=== PATIENT | female | born 1990 | race American Indian/Alaskan Native ===

== ENCOUNTER 2016-05-31 02:07 | Emergency (ER) | payer SELFPAY ==
[2016-05-31 02:11] VITALS: BMI 26.2
[2016-05-31 02:16] VITALS: BP 109/56; PULSE 81; RESP 18; O2SAT 100
[2016-05-31 02:19] VITALS: TEMP 98.2
--- NOTE | 2016-05-31 02:41 | ED PDOC ---
Arrival/HPI - General Chief Complaint: Headache Time Seen by Provider: 05/31/16 02:09 Historian: Patient - History of Present Illness Narrative History of Present Illness (Text): 05/31/16 02:37 Ariane New is a 25 year old female who presents to the ED complaining of a frontal headache for the past 2 days. Patient also complaining of some decreased appetite secondary to headache. Patient denies any vision changes, focal neurological deficits, fever, chills, chest pain, shortness of breath, nausea, vomiting, diarrhea, urinary symptoms, back pain, neck pain, dizziness, or any other complaints. Time/Duration: < week (2 days) Symptom Onset: Gradual Symptom Course: Unchanged Activities at Onset: Rest, Light Context: Home Past Medical History - Provider Review Nursing Documentation Reviewed: Yes - Infectious Disease Hx of Infectious Diseases: None - Pulmonary Hx Asthma: Yes - Psychiatric Hx Substance Use: No - Surgical History Hx Section: Yes (x3) Other/Comment: Ovarian cyst - Anesthesia Hx Anesthesia: Yes Hx Anesthesia Reactions: No Hx Malignant Hyperthermia: No Family/Social History - Physician Review Nursing Documentation Reviewed: Yes Family/Social History: No Known Family HX Smoking Status: Heavy Smoker > 10 Cigarettes Daily Hx Alcohol Use: No Hx Substance Use: No Allergies/Home Meds Allergies/Adverse Reactions: Allergies black pepper Allergy (Verified 05/31/16 02:11) ANAPHYLAXIS Review of Systems - Physician Review All systems were reviewed & negative as marked: Yes - Review of Systems Constitutional: Normal. absent: Fevers Eyes: Normal ENT: Normal Respiratory: Normal. absent: SOB, Cough Cardiovascular: Normal. absent: Chest Pain Gastrointestinal: Normal. absent: Abdominal Pain, Diarrhea, Nausea, Vomiting Genitourinary Female: Normal. absent: Dysuria, Frequency, Urine Output Changes Musculoskeletal: Normal. absent: Back Pain, Neck Pain Skin: Normal. absent: Rash Neurological: Headache. absent: Dizziness Endocrine: Normal Hemo/Lymphatic: Normal Psychiatric: Normal Physical Exam Vital Signs Reviewed: Yes Vital Signs Temp Pulse Resp BP Pulse Ox 05/31/16 02:14 98.2 F 81 18 109/56 L 100 Temperature: Afebrile Blood Pressure: Normal Pulse: Regular Respiratory Rate: Normal Appearance: Positive for: Well-Appearing, Non-Toxic, Comfortable Pain Distress: None Mental Status: Positive for: Alert and Oriented X 3 - Systems Exam Head: Present: Atraumatic, Normocephalic Pupils: Present: PERRL Extroacular Muscles: Present: EOMI Conjunctiva: Present: Normal Mouth: Present: Moist Mucous Membranes Neck: Present: Normal Range of Motion Respiratory/Chest: Present: Clear to Auscultation, Good Air Exchange. No: Respiratory Distress, Accessory Muscle Use Cardiovascular: Present: Regular Rate and Rhythm, Normal S1, S2. No: Murmurs Abdomen: Present: Normal Bowel Sounds. No: Tenderness, Distention, Peritoneal Signs Back: Present: Normal Inspection Upper Extremity: Present: Normal Inspection. No: Cyanosis, Edema Lower Extremity: Present: Normal Inspection. No: Edema Neurological: Present: GCS=15, CN II-XII Intact, Speech Normal Skin: Present: Warm, Dry, Normal Color. No: Rashes Psychiatric: Present: Alert, Oriented x 3, Normal Insight, Normal Concentration Medical Decision Making ED Course and Treatment: 05/31/16 02:37 Impression: 25 year old female complaining of headache for 2 days. Differential Diagnosis include but are not limited to: headache Plan: -- Tylenol -- Reassess and disposition Progress Notes: On re-evaluation, the patient feels better and is in no acute distress. I have discussed the results and plan with the patient, who expresses understanding. Patient in agreement with plan to discharged home. Patient is stable for discharge. Patient was instructed to follow up with physician/clinic in 1-2 days or return if symptoms worsen or new concerning symptoms arise. - Medication Orders Current Medication Orders: Discontinued Medications Acetaminophen (Tylenol 325mg Tab) 650 mg PO STAT STA Stop: 05/31/16 02:38 Last Admin: 05/31/16 02:49 Dose: 650 MG MAR Pain/Vitals Document 05/31/16 02:49 KATHLEEN (Rec: 05/31/16 02:49 KATHLEEN [id number]) Pain Reassessment Is This A Pain ReAssessment? No - Scribe Statement The provider has reviewed the documentation as recorded by the Kyibkeenan Menendez Provider Attestation: All medical record entries made by the Scribe were at my direction and personally dictated by me. I have reviewed the chart and agree that the record accurately reflects my personal performance of the history, physical exam, medical decision making, and the department course for this patient. I have also personally directed, reviewed, and agree with the discharge instructions and disposition. Disposition/Present on Arrival - Present on Arrival Any Indicators Present on Arrival: No History of DVT/PE: No History of Uncontrolled Diabetes: No Urinary Catheter: No History of Decub. Ulcer: No History Surgical Site Infection Following: None - Disposition Have Diagnosis and Disposition been Completed?: Yes Diagnosis: Headache Disposition: HOME/ ROUTINE Disposition Time: 02:40 Condition: GOOD Discharge Instructions (ExitCare): Acute Headache (ED) Forms: WORK NOTE
== END 2016-05-31 04:02 | disposition home or self-care (01) ==
LOC: ED 02:07
DX: R51 Headache (principal); F17.210 Nicotine dependence, cigarettes, uncomplicated

== ENCOUNTER 2016-07-13 17:34 | Emergency (ER) | payer SELFPAY ==
[2016-07-13 17:34] VITALS: BMI 26.2
[2016-07-13 17:52] VITALS: TEMP 98.6; O2SAT 100
[2016-07-13] MEDS ORDERED: Sodium Chloride 0.9% 1,000 ML IV STA (18:51)
[2016-07-13 19:40] VITALS: RESP 18
[2016-07-13 19:59] LABS: ADD MANUAL DIFF? NO
[2016-07-13 20:09] LABS: BASO # 0.02 K/mm3 (0.0-2.0); BASO % 0.4 % (0.0-3.0); EOS # 0.2 (0.0-0.7); EOS % 3.2 % (1.5-5.0); GRAN # 2.85 (1.4-6.5); GRAN % 50.7 % (50.0-68.0); HEMATOCRIT 25.7 % (36.0-48.0); LYMPH # 2.3 (1.2-3.4); LYMPH % 40.7 % (22.0-35.0); MEAN CELL VOLUME 74.9 fL (80.0-105.0); MEAN CORPUSCULAR HEMOGLOBIN 25.4 pg (25.0-35.0); MEAN CORPUSCULAR HGB CONC 33.9 g/dl (31.0-37.0); MEAN PLATELET VOLUME 9.9 fl (7.0-11.0); MONO # 0.3 (0.1-0.6); PLATELET COUNT 204 10^3/uL (120.0-450.0); WHITE BLOOD COUNT 5.6 10^3/ul (4.5-11.0)
[2016-07-13 20:13] LABS: ALB/GLOB RATIO 1.1 (1.1-1.8); ALKALINE PHOSPHATASE 75 U/L (38-133); ALT/SGPT 23 U/L (7-56); AST/SGOT 16 U/L (15-39); BILIRUBIN,TOTAL 0.5 mg/dL (0.2-1.3); BLOOD UREA NITROGEN 6 mg/dL (7-21); CALCIUM 9.1 mg/dL (8.4-10.5); CARBON DIOXIDE 26 mmol/L (21-33); CHLORIDE 102 mmol/L (98-107); GFR AFRICAN-AMERICAN > 60; GLUCOSE,RANDOM 79 mg/dL (70-110); POTASSIUM 3.1 mmol/L (3.6-5.0); SODIUM 135 mmol/L (132-148); TOTAL PROTEIN 7.2 g/dL (5.8-8.3)
--- NOTE | 2016-07-13 20:59 | ED PDOC ---
Arrival/HPI - General Historian: Patient - General Chief Complaint: Dizziness/Lightheaded Time Seen by Provider: 07/13/16 18:10 - History of Present Illness Narrative History of Present Illness (Text): 07/13/16 22:35 Patient w/ PMH of LAMBERTO, not on any iron pills, is ~22 weeks reports having an episode of dizziness with no vertigo which lasted a few minutes at 3am while she was at work. States that she got home from work went to sleep and since then felt well with no complaints at this time, she is here requesting a doctor's note clearing her to go back to work. Otherwise: (-) trauma, (-) headache, (-) tinnitus, (-) hearing loss, (-) chest pain, (-) dyspnea, (-) fever , (-) vomiting, (-) diarrhea, (-) syncope, (-) GI bleeding, (-) abdominal pain, (-) vaginal bleeding, (-) N/V, (-) urinary symptoms, (-) prior salpingitis, (-) prior ectopic . Has (-) care and (+) prior OB ultrasound - ~ 2weeks ago at an clinic, patient states that she has no intentions of keeping her current and plans to follow up with the clinic in a few days. On further questioning, patient states that she has had prior dizzy spells with all of her previous pregnancies and the episode early this morning was her first episode with this . 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 2016 (Shaun MAGAÑA,Dee Davis) Past Medical History - Provider Review Nursing Documentation Reviewed: Yes - Infectious Disease Hx of Infectious Diseases: None - Cardiac Hx Cardiac Disorders: No - Pulmonary Hx Respiratory Disorders: Yes Hx Asthma: Yes - Neurological Hx Neurological Disorder: No - HEENT Hx HEENT Disorder: No - Renal Hx Renal Disorder: No - Endocrine/Metabolic Hx Endocrine Disorders: No - Hematological/Oncological Hx Blood Disorders: No - Integumentary Hx Dermatological Disorder: No - Musculoskeletal/Rheumatological Hx Musculoskeletal Disorders: No - Gastrointestinal Hx Gastrointestinal Disorders: No Hx Bowel Surgery: No - Genitourinary/Gynecological Hx Genitourinary Disorders: No - Psychiatric Hx Psychophysiologic Disorder: No Hx Substance Use: No - Surgical History Hx Section: Yes (x3) Other/Comment: Ovarian cyst - Anesthesia Hx Anesthesia: Yes Hx Anesthesia Reactions: No Hx Malignant Hyperthermia: No Family/Social History - Physician Review Nursing Documentation Reviewed: Yes Family/Social History: No Known Family HX Smoking Status: Former Smoker Hx Alcohol Use: No Hx Substance Use: No Allergies/Home Meds Allergies/Adverse Reactions: Allergies black pepper Allergy (Verified 07/13/16 17:52) ANAPHYLAXIS Review of Systems - Review of Systems Constitutional: Normal, Weight Change. absent: Fatigue, Fevers Respiratory: Normal. absent: SOB, Cough, Sputum, Wheezing Cardiovascular: Normal. absent: Chest Pain, Palpitations, Edema Gastrointestinal: Normal. absent: Abdominal Pain, Stool Changes, Constipation Genitourinary Female: Normal. absent: Dysuria, Frequency, Hematuria Musculoskeletal: Normal, Back Pain. absent: Arthralgias, Neck Pain Skin: Normal. absent: Rash, Pruritis, Skin Lesions Physical Exam - Physical Exam Narrative Physical Exam (Text): 07/13/16 22:34 GENERAL APPEARANCE: Patient is awake, alert, oriented x 3, in no acute distress. SKIN: Warm, dry; (-) cyanosis. EYES: (-) conjunctival pallor. ENMT: Mucous membranes moist. NECK: (-) tenderness, (-) stiffness, (-) lymphadenopathy. CHEST AND RESPIRATORY: (-) rales, (-) rhonchi, (-) wheezes; breath sounds equal bilaterally. HEART AND CARDIOVASCULAR: (-) irregularity; (-) murmur, (-) gallop. ABDOMEN AND GI: Gravid abdomen. Soft; (-) tenderness. EXTREMITIES: (-) deformity. NEURO AND PSYCH: Mental status as above; (-) focal findings. (Shaun MAGAÑA, Dee Davis) Vital Signs Temp Pulse Resp BP Pulse Ox 07/13/16 21:36 75 18 105/58 L 100 07/13/16 19:34 79 18 101/58 L 100 07/13/16 17:54 95/53 L 07/13/16 17:47 98.6 F 84 16 100 Medical Decision Making Re-evaluation Time: 21:45 Reassessment Condition: Re-examined, Improved - Lab Interpretations I have reviewed the lab results: Yes (Hgb 8.7 K 3.1) Interpretation: All labs normal (otherwise, escept mentioned above) - EKG Interpretation Interpreted by ED Physician: Yes Type: 12 lead EKG ED Course and Treatment: 07/13/16 22:27 25 yo F ~22 wks, , w/ h/o LAMBERTO, presents with one episode of dizziness at 3 am which has since resolved. Plan: -- Labs -- IV fluids -- Urinalysis -- EKG -- Reassess and disposition -- Pelvic US Labs reviewed, patient is noted to be anemic, with hypokalemia. KCL po given. Patient reports that she does have a h/o anemia and does not know what her Hgb typically is. States that she is supposed to take iron pills but does not. At this time states that she feels well. She reports no headache, no dizziness, no chest pain, no palpitations, no SOB, no abdominal pain, or vaginal bleeding. Repeat exam, lungs clear, abdomen is gravid with no tenderness, repeat neuro exam shows no focal findings. Based on history, exam and diagnostic results plan will be for inpatient treatment for further evaluation and observation of symptomatic anemia, considering that the patient has had no care and has no appropriate follow up it is not in the best interest of the patient to be discharged. Diagnostic results discussed with the patient in great detail. Patient refuses further care, evaluation or treatment in the hospital and is refusing admission. Patient informed of the reasons for the following and planned treatment, which patient understands, however still refuses. Patient informed of the risk and benefits of treatment. Informed that the risk could include worsening of current conditions, undiagnosed conditions, disability or even . Patient understands the following risk and the benefits of treatment. Patient has the capacity to make decisions and still refuses treatment by GILLIAN GANDHI and ER MD. Patient encouraged to return to the ER at any time and to follow up with pmd. Follow up with the clinic in 1-2 days without fail. Advised to take medication as prescribed. Return to the emergency room at any time for any new or worsening symptoms. (Shaun MAGAÑA,Dee Davis) Patient in ED states no symptoms, no abdominal pain, no vaginal bleeding. She has had NO care but has been aware that she is over 20 weeks . Risks of lack of care and current symptoms reviewed with patient. She is anemic in ED, she states she has past history of anemia but has not recently been evaluated and does not know what her baseline hemoglobin is. I have recommended admission given her presenting complaints and lack of follow-up care. In laymen's terms I have discussed with her recommended treatment plan and risks. Patient will be signed out against medical advice. (Yoseph Delatorre) - Lab Interpretations Microbiology Results: Microbiology Results 07/13/16 21:30 Urine Urine Culture - Final MULTIPLE SPECIES. SUGGEST REPEAT SPECIMEN. Lab Results: 07/13/16 19:30 07/13/16 19:30 Lab Results 07/13/16 21:30: Urine Color Yellow, Urine Appearance Cloudy, Urine pH 7.0, Ur Specific [place] 1.015, Urine Protein Trace H, Urine Glucose (UA) Negative, Urine Ketones Negative, Urine Blood Negative, Urine Nitrate Negative, Urine Bilirubin Negative, Urine Urobilinogen 2.0 H, Ur Leukocyte Esterase Moderate H, Urine RBC 0 - 2, Urine WBC 1 - 3, Ur Epithelial Cells Many, Urine Bacteria Mod 07/13/16 19:30: Sodium 135, Potassium 3.1 L, Chloride 102, Carbon Dioxide 26, Anion Gap 10, BUN 6 L, Creatinine 0.5, Est GFR ( Amer) > 60, Est GFR (Non -Af Amer) > 60, Random Glucose 79, Calcium 9.1, Total Bilirubin 0.5, AST 16, ALT 23, Alkaline Phosphatase 75, Total Protein 7.2, Albumin 3.7, Globulin 3.5, Albumin/Globulin Ratio 1.1 07/13/16 19:30: WBC 5.6, RBC 3.43 L, Hgb 8.7 L, Hct 25.7 L, MCV 74.9 L, MCH 25.4 , MCHC 33.9, RDW 16.0 H, Plt Count 204, MPV 9.9, Gran % 50.7, Lymph % (Auto) 40.7 H, Moore % (Auto) 5.0, Eos % (Auto) 3.2, Baso % (Auto) 0.4, Gran # 2.85, Lymph # 2.3, Moore # 0.3, Eos # 0.2, Baso # 0.02 - RAD Interpretation Narrative RAD Interpretations (Text): EXAM: US After First Trimester, Transabdominal CLINICAL HISTORY: 25 years old, female; Pain; complicated by abdominal or pelvic pain; Right lower quadrant; Second trimester; Gestational age or lmp: 21 weeks,4 days; ; Additional info: 22 wks , dizzy TECHNIQUE: Real-time transabdominal obstetrical ultrasound of the maternal pelvis and a second or third trimester with image documentation. EXAM DATE/TIME: 07/13/2016 6:51 PM COMPARISON: There are no prior studies for comparison. FINDINGS: Fetus: There is a single living intrauterine gestation in cephalic presentation. There is a heart rate of 138 beats per minute. Placenta: Placenta is anterior and fundal with no previa or abruption. Amniotic fluid: Amnionic fluid volume appears normal Anatomy: Formal anatomic survey was not performed. BIOMETRICS Gestational age by US: 21 weeks 6 days EFW: 453 g BPD: 5.25, 22 weeks 0 days HC: 19.52, 21 weeks 5 days AC: 17.10, 22 weeks 0 days FL: 3.63, 21 weeks 4 days IMPRESSION: 21 week 6 day single living intrauterine gestation, estimated date of delivery 11/17/16 Dictated and Authenticated by: Huong Newell MD 07/13/2016 8:57 PM Eastern Time ([place] & [place]) (Dee Dunn PA-C) Radiology Orders: 07/13/16 18:51 AGE [US] Stat - EKG Interpretation EKG Interpretation (Text): 07/13/16 22:30 EKG: NSR at 78 bpm, (-) acute ST changes, as read by PA (Dee Dunn PA-C) - Medication Orders Current Medication Orders: Discontinued Medications Sodium Chloride (Sodium Chloride 0.9%) 1,000 mls @ 1,000 mls/hr IV .Q1H STA Stop: 07/13/16 19:50 Last Admin: 07/13/16 20:00 Dose: 1,000 mls/hr Potassium Chloride (Potassium Chloride Oral Soln) 40 meq PO STAT STA Stop: 07/13/16 21:08 Last Admin: 07/13/16 21:44 Dose: 40 meq - PA / SALES MARKETING MANAGER / Resident Statement / has reviewed & agrees with the documentation as recorded. Disposition/Present on Arrival - Present on Arrival Any Indicators Present on Arrival: No History of DVT/PE: No History of Uncontrolled Diabetes: No Urinary Catheter: No History of Decub. Ulcer: No History Surgical Site Infection Following: None - Disposition Have Diagnosis and Disposition been Completed?: Yes Disposition Time: 22:00 Patient Plan: Other (patient is leaving AMA) - Disposition Diagnosis: , Dizziness, UTI (urinary tract infection), Anemia Disposition: AGAINST MEDICAL ADVICE Condition: STABLE Discharge Instructions (ExitCare): Urinary Tract Infection in Women (ED), Dizziness (ED), Against Medical Advice (ED), Anemia (ED) Print Language: VIETNAMESE Additional Instructions: Return to the Emergency Department if your symptoms worsen, do not improve, or if you have any other problems. Prescriptions: Nitrofurantoin Macrocrystals [Macrobid] 100 mg PO BID #20 cap Multivit/Folic Acid/I [] 1 tab PO DAILY #30 tab Referrals: Kailyn Mclaughlin MD [Primary Care Provider] - Follow up with primary [facility] [place] [Outside] - Follow up with primary Forms: WORK NOTE
[2016-07-13] MEDS ORDERED: Potassium Chloride 20 mEq/15 ml LIQ UD PO STA (21:07)
[2016-07-13 21:36] VITALS: BP 105/58; PULSE 75
[2016-07-13 21:46] LABS: URINE BILIRUBIN NEGATIVE (NEGATIVE); URINE BLOOD NEGATIVE (NEGATIVE); URINE GLUCOSE (UA) NEGATIVE (NEGATIVE); URINE KETONE NEGATIVE (NEGATIVE); URINE LEUKOCYTE ESTERASE MODERATE Leu/uL (NEGATIVE); URINE PROTEIN TRACE mg/dL (<30 mg/dL)
[2016-07-13 21:48] LABS: URINE APPEARANCE CLOUDY (CLEAR); URINE COLOR YELLOW (YELLOW)
[2016-07-13 21:55] LABS: URINE EPITHELIAL CELLS MANY /hpf (0-5); URINE RBC 0 - 2 /hpf (0-2)
[2016-07-13 21:56] LABS: URINE BACTERIA MOD (NEG)
--- NOTE | 2016-07-14 09:58 | CARD ---
APPROVED REPORT EKG Measurement Heart [id number] <Conclusion> Normal sinus rhythm Septal infarct, age undetermined Possible Inferior infarct, age undetermined NSSTW changes
== END 2016-07-13 22:30 | disposition left against medical advice (07) ==
LOC: ED 17:34
DX: O23.42 Unspecified infection of urinary tract in pregnancy, second trimester (principal); O99.012 Anemia complicating pregnancy, second trimester; O26.892 Other specified pregnancy related conditions, second trimester; R42 Dizziness and giddiness; Z3A.22 22 weeks gestation of pregnancy
CPT/HCPCS: 76815; 80053; 81001; 85025; 87086; 93005; 99285; J7040